=== PATIENT | female | born 1995 | race Hispanic/Latino ===

== ENCOUNTER 2019-04-12 12:29 | Emergency (ER) | payer OTHER ==
[2019-04-12 12:37] VITALS: BP 126/81; PULSE 57; RESP 16; TEMP 98.1; O2SAT 98; BMI 23.9
[2019-04-12] MEDS ORDERED: Sodium Chloride 0.9% 1,000 ML IV STA (13:00)
[2019-04-12 13:32] LABS: BASO # 0.1 K/uL (0.0-0.2); BASO % 1.5 % (0.0-2.0); EOS # 0.1 K/uL (0.0-0.7); HEMOGLOBIN 12.3 g/dL (12.0-16.0); LYMPH # 1.5 K/uL (1.0-4.3); LYMPH % 33.7 % (20.0-40.0); MEAN CELL VOLUME 92.5 fl (81.0-99.0); MEAN CORPUSCULAR HEMOGLOBIN 30.2 pg (27.0-31.0); MEAN CORPUSCULAR HGB CONC 32.7 g/dL (33.0-37.0); MONO # 0.4 K/uL (0.0-0.8); NEUT # 2.3 K/uL (1.8-7.0); NEUT % 52.8 % (50.0-75.0); RBC 4.07 Mil/uL (3.80-5.20); RED CELL DISTRIBUTION WIDTH 13.4 % (11.5-14.5); WHITE BLOOD COUNT 4.3 K/uL (4.8-10.8)
[2019-04-12 13:51] LABS: BLOOD UREA NITROGEN 10 mg/dl (7-17); CALCIUM 9.3 mg/dL (8.4-10.2); GFR NON-AFRICAN AMERICAN > 60
[2019-04-12 13:54] LABS: SQUAMOUS EPITHIAL 7 /hpf (0-5); URINE AMORPHOUS SEDIMENT RARE /ul (<OCC); URINE BACTERIA RARE (<OCC); URINE BILIRUBIN NEGATIVE (NEGATIVE); URINE BLOOD NEGATIVE (NEGATIVE); URINE CLARITY CLOUDY (Clear); URINE COLOR YELLOW (YELLOW); URINE GLUCOSE (UA) NEG (NEGATIVE); URINE LEUKOCYTE ESTERASE NEG Leu/uL (Negative); URINE PROTEIN NEGATIVE (NEGATIVE); URINE UROBILINOGEN 0.2-1.0 mg/dL (0.2-1.0)
--- NOTE | 2019-04-12 14:31 | ED PDOC ---
Syncope/Near Syncope/Dizziness Time Seen by Provider: 04/12/19 12:43 Chief Complaint (Nursing): Dizziness/Lightheaded Chief Complaint (Provider): Dizziness, leg pain History Per: Patient History/Exam Limitations: no limitations Onset/Duration Of Symptoms: Hrs Current Symptoms Are (Timing): Still Present Possible Causative Factor(s): New Medications Additional History Per: Patient Additional Complaint(s): 23 year old female with no medical history presents to the emergency room c/o dizziness and right calf pain after taking a new oral contraceptive called Klarissa barroso. patient states she took the first dose this morning at 8am and one hour after taking medication she reports feeling dizzy and right calf pain "karen horse" patient states pain was presistent which prompted ED visit. patient also reports she was asking oral contraceptives in the past last time was one year ago and re-started today with a different medication. She also states shes smoker. Last travel to [place] was two weeks ago. Patient also reports she consumed alcohol over the weekend. Patient denies shortness or breath, chest pain, palpitations. - Risk Factors PE Risk Factors: Pos: Estrogen Usage Past Medical History Reviewed: Historical Data, Nursing Documentation, Vital Signs Vital Signs: Last Vital Signs Temp 98.1 F 04/12/19 12:36 Pulse 57 L 04/12/19 12:36 Resp 16 04/12/19 12:36 BP 126/81 04/12/19 12:36 Pulse Ox 98 04/12/19 12:36 Primary Care Provider: FAMILY PROVIDER,NO - Medical History PMH: No Chronic Diseases - Surgical History Surgical History: No Surg Hx - Family History Family History: States: Unknown Family Hx - Social History Current smoker - smoking cessation education provided: Yes Alcohol: Social Drugs: Denies - Allergies Allergies/Adverse Reactions: Allergies Allergy/AdvReac Type Severity Reaction Status Date / Time No Known Allergies Allergy Verified 04/12/19 12:35 Review of Systems ROS Statement: Except As Marked, All Systems Reviewed And Found Negative Constitutional: Negative for: Fever, Chills, Sweats, Weakness, Malaise Cardiovascular: Positive for: Light Headedness. Negative for: Chest Pain, Palpitations, Edema Respiratory: Negative for: Cough, Shortness of Breath, Hemoptysis, SOB with Exertion, Wheezing Gastrointestinal: Negative for: Nausea, Vomiting, Abdominal Pain, Diarrhea, Constipation Genitourinary Female: Negative for: Dysuria, Hematuria Neurological: Positive for: Dizziness Physical Exam - Reviewed Nursing Documentation Reviewed: Yes Vital Signs Reviewed: Yes - Physical Exam Appears: Positive for: Well, Non-toxic, No Acute Distress Head Exam: Positive for: ATRAUMATIC, NORMAL INSPECTION, NORMOCEPHALIC Skin: Positive for: Normal Color, Warm, DRY Eye Exam: Positive for: EOMI, Normal appearance, PERRL ENT: Positive for: Normal ENT Inspection Neck: Positive for: Normal, Painless ROM, Supple Cardiovascular/Chest: Positive for: Regular Rate, Rhythm, Chest Non Tender Respiratory: Positive for: CNT, Normal Breath Sounds Pulses-Radial (L): 2+ Pulses-Radial (R): 2+ Gastrointestinal/Abdominal: Positive for: Normal Exam, Bowel Sounds, Soft. Negative for: Tenderness Back: Positive for: Normal Inspection. Negative for: L CVA Tenderness, R CVA Tenderness Extremity: Positive for: Normal ROM, Tenderness, Calf Tenderness (left calf tenderness, neg for brusing ), Capillary Refill (<2 secs refill bilat lower ext). Negative for: Pedal Edema, Deformity, Swelling Neurological/Psych: Positive for: Awake, Alert, Normal Tone, Oriented - Laboratory Results Result Diagrams: 04/12/19 13:28 04/12/19 13:28 Lab Results: Urine Color Yellow (YELLOW) 04/12/19 13:46 Urine Clarity Cloudy (Clear) 04/12/19 13:46 Urine pH 7.0 (5.0-8.0) 04/12/19 13:46 Ur Specific Thayer < 1.005 (1.003-1.030) 04/12/19 13:46 Urine Protein Negative mg/dL (NEGATIVE) 04/12/19 13:46 Urine Glucose (UA) Neg mg/dL (NEGATIVE) 04/12/19 13:46 Urine Ketones Negative mg/dL (NEGATIVE) 04/12/19 13:46 Urine Blood Negative (NEGATIVE) 04/12/19 13:46 Urine Nitrate Negative (NEGATIVE) 04/12/19 13:46 Urine Bilirubin Negative (NEGATIVE) 04/12/19 13:46 Urine Urobilinogen 0.2-1.0 mg/dL (0.2-1.0) 04/12/19 13:46 Ur Leukocyte Esterase Neg Denis/uL (Negative) 04/12/19 13:46 Urine RBC (Auto) 2 /hpf (0-3) 04/12/19 13:46 Urine Microscopic WBC 1 /hpf (0-5) 04/12/19 13:46 Ur Squamous Epith Cells 7 /hpf (0-5) H 04/12/19 13:46 Amorphous Sediment Rare /ul (<OCC) H 04/12/19 13:46 Urine Bacteria Rare (<OCC) 04/12/19 13:46 - ECG O2 Sat by Pulse Oximetry: 98 Medical Decision Making Medical Decision Making: --CBC --BMP --UA --0.9NS --UPREG --US DOPPLER RIGHT LOWER EXT --RE-EVAL 15:00 Labs reviewed by me. Unremarkable. Pending US report 15:40 duplex negative for DVT. patient states dizziness has improved but continues with symtpoms. Clinical findings discussed with patient. No further work-up needed in ED. patient advised to call alley worker as soon as possible to notify of symptoms post new oral contraceptive ingestion. patient states understanding and agrees with plan. return to ed precautions given. Accession No. : [id number] Patient Name / ID : BOBBY TOWNSEND / [id number] Exam Date : 04/12/2019 14:55:56 ( Approved ) Study Comment : Sex / Age : F / 23Y Creator : jenny alamo Dictator : Sherman Hopkins MD Missile Control Pilot : [employer] Dough Mixer : Sherman Hopkins MD Approver2 : Report Date : 04/12/2019 15:16:49 My Comment : Date of service: 04/12/2019 PROCEDURE: Right lower extremity venous duplex Doppler. HISTORY: oral contraceptive use/ calf pain COMPARISON: None available. TECHNIQUE: Common femoral, superficial femoral, popliteal and posterior tibial veins were evaluated. Flow was assessed with color Doppler, compressibility, assessment of phasic flow and augmentation response. FINDINGS: COMMON FEMORAL VEIN: Unremarkable. SUPERFICIAL FEMORAL VEIN: Unremarkable. POPLITEAL VEIN: Unremarkable. POSTERIOR TIBIAL VEIN: Unremarkable. OTHER FINDINGS: None. IMPRESSION: No evidence of deep venous thrombosis in the right lower extremity. Disposition - Clinical Impression Clinical Impression: Leg pain, Dizziness - Patient ED Disposition Is Patient to be Admitted: No Counseled Patient/Family Regarding: Diagnosis - Disposition Disposition: Routine/Home Disposition Time: 15:30 Condition: GOOD Instructions: Choosing Control Forms: [facility] (Russian) Print Language: IRAQI - POA Present On Arrival: None
--- NOTE | 2019-04-12 15:25 | US ---
Date of service: 04/12/2019 PROCEDURE: Right lower extremity venous duplex Doppler. HISTORY: oral contraceptive use/ calf pain COMPARISON: None available. TECHNIQUE: Common femoral, superficial femoral, popliteal and posterior tibial veins were evaluated. Flow was assessed with color Doppler, compressibility, assessment of phasic flow and augmentation response. FINDINGS: COMMON FEMORAL VEIN: Unremarkable. SUPERFICIAL FEMORAL VEIN: Unremarkable. POPLITEAL VEIN: Unremarkable. POSTERIOR TIBIAL VEIN: Unremarkable. OTHER FINDINGS: None. IMPRESSION: No evidence of deep venous thrombosis in the right lower extremity.
== END 2019-04-12 16:05 | disposition home or self-care (01) ==
LOC: H.ER 12:29
DX: M79.604 Pain in right leg (principal); R42 Dizziness and giddiness
CPT/HCPCS: 80048; 81003; 81025; 85025; 93971; 99283; J7030